=== PATIENT | male | born 1980 ===

== ENCOUNTER 2017-02-25 10:52 | Emergency (ER) | payer OTHER ==
[2017-02-25 11:03] VITALS: BMI 25.0
[2017-02-25 11:07] VITALS: BP 114/63; PULSE 57; RESP 19; TEMP 98.2; O2SAT 100
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
== END 2017-02-25 13:24 | disposition home or self-care (01) ==
LOC: ED 10:52
DX: R05 Cough (principal); J30.2 Other seasonal allergic rhinitis

== ENCOUNTER 2017-06-21 11:28 | Emergency (ER) | payer OTHER ==
[2017-06-21 11:36] VITALS: BMI 28.7
[2017-06-21 11:39] VITALS: TEMP 98.9
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
--- NOTE | 2017-06-21 12:40 | RAD ---
PROCEDURE: Radiographs of the Lumbar Spine. HISTORY: back pain COMPARISON: No prior. FINDINGS: BONES: Normal alignment. No listhesis. No fracture. DISC SPACES: Unremarkable. OTHER FINDINGS: None. IMPRESSION: Unremarkable radiographs of the lumbar spine.
[2017-06-21 12:58] VITALS: BP 110/70; PULSE 62; RESP 17; O2SAT 100
== END 2017-06-21 13:08 | disposition home or self-care (01) ==
LOC: ED 11:28
DX: M54.9 Dorsalgia, unspecified (principal)
CPT/HCPCS: 72110; 96372; 99283; J1885

== ENCOUNTER 2017-10-09 09:02 | Emergency (ER) | payer OTHER ==
[2017-10-09 09:02] VITALS: BMI 28.7
[2017-10-09 09:24] VITALS: BP 108/68; PULSE 71; RESP 17; TEMP 99; O2SAT 98
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
== END 2017-10-09 10:05 | disposition home or self-care (01) ==
LOC: EDBD 09:02 → ED 09:02
DX: J40 Bronchitis, not specified as acute or chronic (principal)